=== PATIENT | male | born 1965 | race African-American/Black ===

== ENCOUNTER 2016-05-16 09:09 | Day surgery (SDC) | payer OTHER ==
[~2016-05-16] VITALS: Ht 195.6 cm; Wt 150.6 kg
[~2016-05-16 09:09] MED LIST: DEXILANT60 MG PO; FLONASE16 G1 BOTH NARES; MOTRIN600 MG PO; NORVASC5 MG PO; PERCOCET 5/31 TABLET PO; PERCOCET 7.51 TABLET PO; ZANAFLEX4 M1 PO
== END 2016-05-16 11:50 | disposition home or self-care (01) ==
LOC: PAIN 09:09 → SDC 09:30 → PAIN 11:50
PROC: 015B3ZZ Destruction of Lumbar Nerve, Percutaneous Approach (ICD-10-PCS; principal; 2016-05-16)
DX: M47.896 Other spondylosis, lumbar region (principal); M51.36 Other intervertebral disc degeneration, lumbar region; M54.16 Radiculopathy, lumbar region; F41.1 Generalized anxiety disorder; I10 Essential (primary) hypertension; M47.812 Spondylosis without myelopathy or radiculopathy, cervical region
CPT/HCPCS: J1030; J2250; J3010; S0020

== ENCOUNTER 2016-06-08 13:10 | Day surgery (SDC) | payer OTHER ==
[~2016-06-08] VITALS: Ht 195.6 cm; Wt 138.8 kg
[~2016-06-08 13:10] MED LIST changes: +MULTI-DAY VITA1 EACH PO; +VITAMIN D2000 UNI1 PO
== END 2016-06-08 15:16 | disposition home or self-care (01) ==
LOC: PAIN 13:10 → SDC 14:30 → PAIN 14:30
DX: M47.896 Other spondylosis, lumbar region (principal); M51.36 Other intervertebral disc degeneration, lumbar region; M51.16 Intervertebral disc disorders with radiculopathy, lumbar region; F41.1 Generalized anxiety disorder; I10 Essential (primary) hypertension; F17.200 Nicotine dependence, unspecified, uncomplicated
CPT/HCPCS: J1030; J2250; J3010; S0020

== ENCOUNTER 2017-04-26 09:31 | Day surgery (SDC) | payer OTHER ==
[~2017-04-26] VITALS: Ht 195.6 cm; Wt 140.6 kg
[~2017-04-26 09:31] MED LIST changes: +HYDROCHLOROTHIA25 MG PO; +LABETALOL HCL200 MG PO; +SKELAXIN800 MG PO
== END 2017-04-26 11:35 | disposition home or self-care (01) ==
LOC: PAIN 09:31 → SDC 11:00 → PAIN 11:35
DX: M47.26 Other spondylosis with radiculopathy, lumbar region (principal); M51.16 Intervertebral disc disorders with radiculopathy, lumbar region; M79.1 Myalgia; M54.2 Cervicalgia; G89.29 Other chronic pain; I10 Essential (primary) hypertension; E66.01 Morbid (severe) obesity due to excess calories; Z68.36 Body mass index [BMI] 36.0-36.9, adult; K21.0 Gastro-esophageal reflux disease with esophagitis; F41.9 Anxiety disorder, unspecified; R94.31 Abnormal electrocardiogram [ECG] [EKG]; G47.30 Sleep apnea, unspecified; Z79.891 Long term (current) use of opiate analgesic; F17.200 Nicotine dependence, unspecified, uncomplicated
CPT/HCPCS: J1030; J2250; J3010; S0020

== ENCOUNTER 2017-06-14 08:44 | Day surgery (SDC) | payer OTHER ==
[~2017-06-14] VITALS: Ht 195.6 cm; Wt 147.3 kg
== END 2017-06-14 10:30 | disposition home or self-care (01) ==
LOC: PAIN 08:44
DX: M47.816 Spondylosis without myelopathy or radiculopathy, lumbar region (principal); M51.36 Other intervertebral disc degeneration, lumbar region; M54.16 Radiculopathy, lumbar region; M47.812 Spondylosis without myelopathy or radiculopathy, cervical region; M47.814 Spondylosis without myelopathy or radiculopathy, thoracic region; M45.9 Ankylosing spondylitis of unspecified sites in spine; F41.9 Anxiety disorder, unspecified; M62.830 Muscle spasm of back; I10 Essential (primary) hypertension; M70.71 Other bursitis of hip, right hip; G89.29 Other chronic pain; K21.9 Gastro-esophageal reflux disease without esophagitis; E66.01 Morbid (severe) obesity due to excess calories; Z68.38 Body mass index [BMI] 38.0-38.9, adult; Z79.891 Long term (current) use of opiate analgesic; F17.200 Nicotine dependence, unspecified, uncomplicated
CPT/HCPCS: J1030; J1885; J2250; J3010; S0020

== ENCOUNTER 2017-08-25 11:28 | Emergency (ER) | payer OTHER ==
[~2017-08-25] VITALS: Ht 195.6 cm; Wt 144.8 kg
[2017-08-25 11:49] LABS: APPEARANCE CLEAR ((CLEAR)); BILIRUBIN NEGATIVE; BLOOD NEGATIVE; COLOR STRAW ((YELLOW)); GLUCOSE (STRIP) >=500; KETONES NEGATIVE; LEUKOCYTES NEGATIVE; NITRITE NEGATIVE; PROTEIN (STRIP) NEGATIVE; UCUL ADDED? NO; UROBILINOGEN 0.2 MG/DL (0.2-1.0)
[2017-08-25 11:57] LABS: HEMATOCRIT 44.4 % (38.0-50.0); HEMOGLOBIN 15.8 G/DL (12.5-16.6); MCH 30.4 PG (29.0-34.0); MCHC 35.6 G/DL (30.0-36.0); MCV 85.5 FL (86-99); PLATELET COUNT 355 K/uL (156-360); RBC DIS.WIDTH-CV 12.2 % (11.8-14.6); RBC DIS.WIDTH-SD 38.3 % (39-53); RED BLOOD COUNT 5.19 M/uL (4.00-5.50); WHITE BLOOD COUNT 8.9 K/uL (4.1-10.2)
[2017-08-25 12:05] LABS: CHLORIDE 98 mEq/L (99-109); POTASSIUM 4.5 mEq/L (3.7-5.4); SODIUM 136 mEq/L (136-147)
[2017-08-25 12:08] LABS: GLUCOSE 572 mg/dL (70-99)
[2017-08-25 12:12] LABS: CREATININE 1.6 mg/dL (0.6-1.3); GFR ESTIMATE (CALCULATED) 59 mL/min/ (58.99-99999); UREA NITROGEN (BUN) 14 mg/dL (9-23)
[2017-08-25 12:17] LABS: ALBUMIN 4.3 g/dL (3.2-4.8)
[2017-08-25 12:20] LABS: TOTAL PROTEIN 7.4 g/dL (6.4-8.3)
[2017-08-25 12:22] LABS: TOTAL BILIRUBIN 0.6 mg/dL (0.0-1.0)
[2017-08-25 12:23] LABS: ALKALINE PHOSPHATASE 100 IU/L (3-129)
[2017-08-25 12:25] LABS: AST (GOT) 23 IU/L (2-34); DIRECT BILIRUBIN 0.2 mg/dL (0.0-0.3)
[2017-08-25 12:26] LABS: ALT (GPT) 47 IU/L (3-49)
[2017-08-25 12:27] LABS: LIPASE 27 U/L (1.0-51.0)
[2017-08-25 12:28] LABS: CARBON DIOXIDE (BICARBONATE) 26.8 MEQ/L (20-31)
[2017-08-25 12:30] VITALS: BP 122/87
[2017-08-25] MEDS ORDERED: METFORMIN HCL500 MG PO (14:42)
[2017-08-25] MEDS ORDERED: FLAGYL500 MG PO (14:58)
[2017-08-25] MEDS ORDERED: CIPRO500 MG PO (14:58)
== END 2017-08-25 15:28 | disposition home or self-care (01) ==
LOC: EME 11:28
PROVIDERS: Physician Assistant
DX: E11.9 Type 2 diabetes mellitus without complications (principal); K57.92 Diverticulitis of intestine, part unspecified, without perforation or abscess without bleeding; I10 Essential (primary) hypertension; G47.30 Sleep apnea, unspecified; G89.29 Other chronic pain; E55.9 Vitamin D deficiency, unspecified; F17.200 Nicotine dependence, unspecified, uncomplicated
CPT/HCPCS: 71046; 74176; 80048; 80076; 81003; 82010; 82803; 82948; 83690; 85027; 99281; 99284; J7030